=== PATIENT | male | born 1945 ===

== ENCOUNTER 2018-12-27 04:52 | Inpatient (IN) | payer OTHER ==
[~2018-12-27] VITALS: Ht 167.6 cm; Wt 99.8 kg
[~2018-12-27 04:52] MED LIST: NABUMETONE500 MG PO; PERCOCET 5/3251 TAB PO
[2018-12-27] MEDS ORDERED: ATROVENT HFA12.9 GM (05:01)
[2018-12-27] MEDS ORDERED: CARDIZEM LA240 MG (05:02)
[2018-12-27] MEDS ORDERED: TRADJENTA5 MG (05:02)
[2018-12-27] MEDS ORDERED: ISOSORBIDE MONO60 MG (05:02)
[2018-12-27] MEDS ORDERED: CATAPRES0.1 MG (05:03)
[2018-12-27] MEDS ORDERED: DOXAZOSIN MESYLA2 MG (05:03)
[2018-12-27] MEDS ORDERED: IMURAN50 MG (05:03)
[2018-12-27] MEDS ORDERED: HYDRALAZINE HC100 MG (05:04)
[2018-12-27] MEDS ORDERED: LASIX20 MG (05:04)
[2018-12-27] MEDS ORDERED: NOVOLIN R100 UNIT/1 (05:04)
[2018-12-27] MEDS ORDERED: LANTUS SOL100 UNIT/1 (05:05)
[2018-12-27] MEDS ORDERED: ORAPRED ODT10 MG (05:05)
[2018-12-27] MEDS ORDERED: MESTINON60 M1 (05:05)
[2018-12-27] MEDS ORDERED: ALDACTONE25 MG (05:06)
== END 2018-12-31 09:59 | disposition home or self-care (01) | DRG 191 ==
LOC: ER 04:52 → MEDI 09:55
PROVIDERS: ADMIT Internal Medicine
PROC: 4A12X4Z Monitoring of Cardiac Electrical Activity, External Approach (ICD-10-PCS; principal; 2018-12-27)
PROC: 4A033R1 Measurement of Arterial Saturation, Peripheral, Percutaneous Approach (ICD-10-PCS; 2018-12-27)
PROC: 3E0F7GC Introduction of Other Therapeutic Substance into Respiratory Tract, Via Natural or Artificial Opening (ICD-10-PCS; 2018-12-27)
PROC: B246ZZZ Ultrasonography of Right and Left Heart (ICD-10-PCS; 2018-12-27)
PROC: BB24ZZZ Computerized Tomography (CT Scan) of Bilateral Lungs (ICD-10-PCS; 2018-12-29)
DX: J44.1 Chronic obstructive pulmonary disease with (acute) exacerbation (principal); I50.20 Unspecified systolic (congestive) heart failure; I11.0 Hypertensive heart disease with heart failure; G47.09 Other insomnia

== ENCOUNTER 2020-12-02 16:14 | Inpatient (IN) | payer OTHER ==
[~2020-12-02] VITALS: Ht 170.2 cm; Wt 52.2 kg
[~2020-12-02 16:14] MED LIST changes: +ALDACTONE25 MG; +ATROVENT HFA12.9 GM; +CARDIZEM LA240 MG; +CATAPRES0.1 MG; +DOXAZOSIN MESYLA2 MG; +HYDRALAZINE HC100 MG; +IMURAN50 MG; +ISOSORBIDE MONO60 MG; +LANTUS SOL100 UNIT/1; +LASIX20 MG; +MESTINON60 M1; +NOVOLIN R100 UNIT/1; +ORAPRED ODT10 MG; +TRADJENTA5 MG
== END 2020-12-08 19:30 | disposition home or self-care (01) | DRG 291 ==
LOC: ER 16:14 → ICU 12-03 08:23 → ICU-2 12-03 08:23 → ICU 12-04 22:26 → MEDI 12-06 23:17 → MEDJ 12-06 23:28
PROVIDERS: ADMIT Internal Medicine; ATTEND Internal Medicine
PROC: B020ZZZ Computerized Tomography (CT Scan) of Brain (ICD-10-PCS; 2020-12-02)
PROC: BR20ZZZ Computerized Tomography (CT Scan) of Cervical Spine (ICD-10-PCS; 2020-12-02)
PROC: B24BYZZ Ultrasonography of Heart with Aorta using Other Contrast (ICD-10-PCS; 2020-12-02)
PROC: 4A12X4Z Monitoring of Cardiac Electrical Activity, External Approach (ICD-10-PCS; principal; 2020-12-07)
DX: I11.0 Hypertensive heart disease with heart failure (principal); G70.01 Myasthenia gravis with (acute) exacerbation; I49.01 Ventricular fibrillation; I50.23 Acute on chronic systolic (congestive) heart failure; S40.812A Abrasion of left upper arm, initial encounter; S50.812A Abrasion of left forearm, initial encounter; Z95.0 Presence of cardiac pacemaker; R55 Syncope and collapse; E11.9 Type 2 diabetes mellitus without complications; Z79.84 Long term (current) use of oral hypoglycemic drugs; Z20.822 Contact with and (suspected) exposure to COVID-19

== ENCOUNTER 2021-02-24 21:52 | Inpatient (IN) | payer OTHER ==
[~2021-02-24] VITALS: Ht 162.6 cm; Wt 72.6 kg
== END 2021-03-02 19:11 | disposition home health service (06) | DRG 391 ==
LOC: ER 21:52 → MEDI 02-25 08:54
PROVIDERS: ADMIT Internal Medicine; ATTEND Internal Medicine
PROC: B24BZZZ Ultrasonography of Heart with Aorta (ICD-10-PCS; principal; 2021-02-27)
DX: R10.32 Left lower quadrant pain (principal); I49.01 Ventricular fibrillation; I11.0 Hypertensive heart disease with heart failure; E11.65 Type 2 diabetes mellitus with hyperglycemia; K58.8 Other irritable bowel syndrome; I50.9 Heart failure, unspecified; G70.00 Myasthenia gravis without (acute) exacerbation; Z95.810 Presence of automatic (implantable) cardiac defibrillator; J43.8 Other emphysema; Z79.4 Long term (current) use of insulin; Z79.52 Long term (current) use of systemic steroids; Z74.01 Bed confinement status; I25.10 Atherosclerotic heart disease of native coronary artery without angina pectoris; R77.8 Other specified abnormalities of plasma proteins

== ENCOUNTER 2021-03-17 19:46 | Emergency (ER) | payer OTHER ==
[~2021-03-17] VITALS: Ht 165.1 cm; Wt 63.5 kg
== END 2021-03-18 01:45 | disposition home or self-care (01) ==
LOC: ER 19:46
DX: J18.8 Other pneumonia, unspecified organism (principal); J44.9 Chronic obstructive pulmonary disease, unspecified; R53.1 Weakness; R06.02 Shortness of breath